=== PATIENT | male | born 1940 | race Caucasian/White ===

== ENCOUNTER 2017-11-01 15:57 | Emergency (ER) | payer OTHER ==
[~2017-11-01] VITALS: Ht 185.4 cm; Wt 77.1 kg
[~2017-11-01 15:57] MED LIST: BLOOD PRESSURE MED; HCTZ; KEFLEX500 MG PO; NORCO 5-325 TA1 EACH PO; ZOCOR
[2017-11-01 16:10] VITALS: BP 128/93
[2017-11-01] MEDS ORDERED: MEDROL4 M1 PO (16:13)
[2017-11-01] MEDS ORDERED: DOXYCYCLINE 10100 MG PO (16:13)
[2017-11-01] MEDS ORDERED: POTASSIUM20 PO (16:14)
[2017-11-01] MEDS ORDERED: NORVASC5 MG PO (16:14)
[2017-11-01] MEDS ORDERED: ASPIR 8181 MG PO (16:14)
[2017-11-01] MEDS ORDERED: TRIAMCINOLONE A80 G2 TOP (16:14)
[2017-11-01] MEDS ORDERED: CO Q10100 MG PO (16:15)
[2017-11-01] MEDS ORDERED: KEFLEX500 M1 PO (16:17)
[2017-11-01] MEDS ORDERED: ACYCLOVIR 800800 MG PO (16:17)
[2017-11-01] MEDS ORDERED: MAGOX 400400 MG PO (16:18)
[2017-11-01] MEDS ORDERED: NORCO 5-325 TA1 EACH PO (16:18)
[2017-11-01] MEDS ORDERED: ZOCOR20 MG PO (16:19)
[2017-11-01] MEDS ORDERED: MELATONIN5 M1 PO (16:19)
[2017-11-01] MEDS ORDERED: PRIVIGEN50 ML INJECTION (16:20)
== END 2017-11-01 16:27 | disposition home or self-care (01) ==
LOC: M.ERS 15:57
DX: B02.9 Zoster without complications (principal); I10 Essential (primary) hypertension; E78.00 Pure hypercholesterolemia, unspecified; Z90.49 Acquired absence of other specified parts of digestive tract